=== PATIENT | female | born 1985 | race African-American/Black ===

== ENCOUNTER 2017-09-05 19:44 | Emergency (ER) | payer MEDICAID ==
[~2017-09-05] VITALS: Ht 160 cm; Wt 69.7 kg
[2017-09-06] MEDS ORDERED: ACETAMINOPHEN 325MG TABLET PO ONE (01:30)
[2017-09-06 02:00] VITALS: BP 126/80
== END 2017-09-06 01:55 | disposition home or self-care (01) ==
LOC: ER 19:44
DX: H66.91 Otitis media, unspecified, right ear (principal); R05 Cough; F17.200 Nicotine dependence, unspecified, uncomplicated
CPT/HCPCS: 99283